=== PATIENT | female | born 1935 | race Caucasian/White ===

== ENCOUNTER 2016-11-04 15:01 | Emergency (ER) | payer MEDICARE ==
[~2016-11-04] VITALS: Ht 170.2 cm; Wt 66.8 kg
[~2016-11-04 15:01] MED LIST: ANAS1 PO; ATOR20TA42 PO; FENO50TA PO; HYDR-2768 PO; LEVO100T60 PO; POTA-243 PO; REST15CA PO; TOPR100T15 PO
[2016-11-04 15:04] VITALS: BP 176/97; PULSE 55; RESP 18; TEMP 98.1; O2SAT 97
[2016-11-04] MEDS ORDERED: LIDOCAINE 1%/EPINEPHrine 1:100,000 SOLN 20 ML VIAL INFIL ONE (15:30)
[2016-11-04] MEDS ORDERED: TETANUS/DIPHTHERIA TOXOID ADULT 0.5 ML VIAL IM ONE (15:30)
--- NOTE | 2016-11-04 15:38 | PD ---
HPI Chief Complaint: Laceration/Skin Injury Time Seen by Provider: 15:35 Travel History International Travel<30 days: No Contact w/Intl Traveler<30days: No Traveled to known affect area: No History of Present Illness HPI 81-year-old female that presents to the ED for evaluation of trip and fall today. Per patient she was in her driveway and she accidentally tripped and fell. She usually uses a cane to go about. Per patient she fell into a curb and hit her right face. Patient has superficial laceration to it. Per patient she was able to get up with assistance. She lives by herself. She denies any blood thinners. She denies losing consciousness. No other injuries reported. Denies any pain anywhere else. No chest pain or shortness of breath. No fevers chills or sweats. No numbness, tilling, weakness. Per patient the pain is all on the right side of the face. She is able to open her eye and see from her eye. She denies any blurry vision or double vision. Per patient the pain is 5 out of 10 on the right side of the face. She does have allergies to medication. PFSH Past Medical History Arthritis: Yes Asthma: No Autoimmune Disease: No Anxiety: Yes Heart Rhythm Problems: No Cancer: Yes (LEFT KIDNEY, RIGHT BREAST) Cardiovascular Problems: Yes High Cholesterol: Yes Chest Pain: No Congestive Heart Failure: No COPD: No Cerebrovascular Accident: No Diabetes: No GERD: No Glaucoma: No Genitourinary: No Headaches: No Hepatitis: No Hiatal Hernia: No Hypertension: Yes Kidney Stones: No Musculoskeletal: Yes Neurologic: No Reproductive: No Respiratory: No Migraines: No Myocardial Infarction: No Renal Failure: No (but left kidney removed from [place]) Seizures: No Sleep Apnea: No Thyroid Disease: Yes Ulcer: No Tetanus Vaccination: < 5 Years Menopausal: Yes Past Surgical History Abdominal Surgery: No Appendectomy: No Cardiac Surgery: No Cholecystectomy: No Ear Surgery: No Endocrine Surgery: No Eye Surgery: No Genitourinary Surgery: Yes (LEFT NEPHRECTOMY) Gynecologic Surgery: No Oral Surgery: No Pacemaker: No Thoracic Surgery: No Other Surgery: Yes (RIGHT BREAST FOR CANCER ON 09/11/09) Social History Alcohol Use: Yes Tobacco Use: No Substance Use: No Allergies-Medications (Allergen,Severity, Reaction): Coded Allergies: Adhesives (Unverified Allergy, Severe, SKIN BURN, 11/04/16) Demerol (Verified Allergy, Severe, severe "family history" recommended not to take, 11/04/16) Latex (Unverified Allergy, Severe, SKIN BURN, 11/04/16) Sulfa (Verified Allergy, Severe, rash, 11/04/16) Reported Meds & Prescriptions Reported Meds & Active Scripts Active Tramadol (Tramadol HCl) 50 Mg Tab 50 Mg PO Q6H PRN Amoxicillin 875 Mg Tab 875 Mg PO BID 10 Days Reported Arimidex (Anastrozole) 1 Mg Tab 1 Mg PO DAILY Restoril (Temazepam) 15 Mg Cap 15 Mg PO HSPRN Tricor (Fenofibrate) 145 Mg Tab 145 Mg PO DAILY Lipitor (Atorvastatin Calcium) 20 Mg Tab 20 Mg PO DAILY Levoxyl (Levothyroxine Sodium) 100 Mcg Tab 100 Mcg PO DAILY Toprol XL (Metoprolol Succinate) 100 Mg Tab 100 Mg PO BID K-Dur (Potassium Chloride) 10 Meq Tabcr 10 Meq PO DAILY Hctz (Hydrochlorothiazide) 25 Mg Tab 25 Mg PO DAILY Review of Systems Except as stated in HPI: all other systems reviewed are Neg Physical Exam Narrative GENERAL: SKIN: Warm and dry. Patient has superficial laceration less than half a centimeter on the right eyebrow. Slightly noted. Less than 2 mm between borders. Well approximated. Patient does have a hematoma bruising with tenderness to palpation on the zygomatic bone of the right face. Patient does have bruises and hematoma in this area. HEAD: Atraumatic. Normocephalic. EYES: Pupils equal and round 4 mm reactive to light and accommodation. No scleral icterus. No injection or drainage. ENT: No nasal bleeding or discharge. Mucous membranes pink and moist. Tongue is midline. No uvula deviation. NECK: Trachea midline. No JVD. CARDIOVASCULAR: Regular rate and rhythm. No murmurs, S3, S4. RESPIRATORY: No accessory muscle use. Clear to auscultation. Breath sounds equal bilaterally. GASTROINTESTINAL: Abdomen soft, non-tender, nondistended. Hepatic and splenic margins not palpable. MUSCULOSKELETAL: Extremities without clubbing, cyanosis, or edema. No obvious deformities. Full range of motion of the upper and lower extremities bilaterally. Pupils pulses bilaterally. No lumbar, thoracic, cervical spine tenderness to palpation. NEUROLOGICAL: Awake and alert. No obvious cranial nerve deficits. Motor grossly within normal limits. Five out of 5 muscle strength in the arms and legs. Normal speech. PSYCHIATRIC: Appropriate mood and affect; insight and judgment normal. Data Data Last Documented VS Vital Signs Date Time Temp Pulse Resp B/P Pulse Ox O2 Delivery O2 Flow Rate FiO2 11/04/16 15:04 98.1 55 18 176/[address] Brain W/O Iv Contrast(Rout) (11/04/16 15:29) Ct Cerv Spine W/O Contrast (11/04/16 15:29) Ct Facial Bones W/O Iv Cont (11/04/16 15:29) Wound Care (11/04/16 15:29) Tetanus/Diphtheria Tox Adult (Tetanus/Di (11/04/16 15:30) Lidocai-Epi 1%-1:100,000 Inj (Xylocaine- (11/04/16 15:30) MDM Medical Decision Making Medical Screen Exam Complete: Yes Emergency Medical Condition: Yes Medical Record Reviewed: Yes Interpretation(s) Last Impressions Maxillofacial CT 11/04/161528 Signed Impressions: Service Date/Time: Friday, November 04, 2016 15:48 - CONCLUSION: 1. Right-sided orbital floor fracture with displaced bone fragments inferiorly and some herniation of orbital fat inferiorly. No CT findings of entrapment. Medial orbital wall fracture also present. Hemorrhage present in right maxillary sinus. Esau Carvalho MD Head CT 11/04/161528 Signed Impressions: Service Date/Time: Friday, November 04, 2016 15:48 - CONCLUSION: Orbital fracture, and cranial contents are unremarkable. Facial bone CT is pending. Mg Mauricio MD FACR Cervical Spine CT 11/04/161528 Signed Impressions: Service Date/Time: Friday, November 04, 2016 15:48 - CONCLUSION: 1. Moderate to severe degenerative change and facet arthropathy. No acute bony abnormalities. Esau Carvalho MD Differential Diagnosis Fracture versus head injury versus contusion versus hematoma versus laceration Narrative Course 81-year-old female that presents to the ED for evaluation of head injury. Patient was properly examined and was found to have signs and symptoms consistent with appears to be head injury. Imaging was ordered. Patient prefers to proceed. After explained procedure to the patient and she agreed to it laceration was repaired as stated in procedure note. Patient was told to get sutures removed in [address] did show right orbital fracture. Case was discussed in my attending who recommends consult. Consult was made with Dr ayala for craniofacial who recommends follow-up in his office. Put her on head injury precautions as well as no coughing and no sneezing and blowing nose. Patient was told this. Patient was given prescription for amoxicillin tramadol for pain. Told to apply ice or warm compresses. See ED worsening symptoms. Procedures Procedure Narrative LACERATION LOCATION: right eyebrow LENGTH: 0.5 cm NUMBER OF STITCHES/CRIS: 2 sutures REPAIR: The area of the laceration was prepped with Betadine and sterilely draped. The laceration was infiltrated with 1% Xylocaine. The wound was copiously irrigated and explored without evidence of foreign body, tendon injury or neurovascular injury. The wound was closed using 5-0 Prolene. This was a 1 layer repair. A sterile dressing was applied. The patient was advised to keep the dressing clean and dry. Patient tolerated the procedure well. Diagnosis Primary Impression: Right orbital fracture Qualified Code: S02.81XA - Right orbital fracture, closed, initial encounter Referrals: Maxi Ayala DDS Patient Instructions: General Instructions Additional Instructions: Take medications as prescribed. Follow-up with PCP and craniofacial doctor. See ED for any worsening symptoms. Do not drink or drive while taking pain medication. Apply ice or heat as needed for pain No sneezing. No coughing. Do not blow your nose. Get sutures removed in 7 days. Med/Other Pt SpecificInfo: Prescription(s) given Scripts Tramadol 50 Mg Tab50 Mg PO Q6H PRN (PAIN) #12 TAB Ref 0 Prov:Neil Levy MD 11/04/16 Amoxicillin 875 Mg Uwh368 Mg PO BID 10 Days Prov:Neil Levy MD 11/04/16 Disposition: 01 DISCHARGE HOME Condition: Stable Nabil Matt Nov 04, 2016 15:38
--- NOTE | 2016-11-04 16:06 | RADRPT ---
EXAM DATE/TIME: 11/04/2016 15:48 [facility] COMPARISON: No previous studies available for comparison. INDICATIONS : Trauma; fall, bruising to right eye. RADIATION DOSE: 34.12 CTDIvol (mGy) MEDICAL HISTORY : Cardiovascular disease. Hypertension. Carcinoma, breast.Renal carcinoma, renal failure. SURGICAL HISTORY : None. ENCOUNTER: Initial ACUITY: 1 day PAIN SCALE: 4/10 LOCATION: Bilateral cranial TECHNIQUE: Multiple contiguous axial images were obtained of the head. Using automated exposure control and adj ustment of the mA and/or kV according to patient size, radiation dose was kept as low as reasonably a chievable to obtain optimal diagnostic quality images. FINDINGS: Intracranial contents are unremarkable. There is no parenchymal hemorrhage, acute infarction or mass lesion. Ventricle size is appropriate. The posterior fossa is unremarkable. Orbital fractures seen on the right. Facial bone CT is pending. CONCLUSION: Orbital fracture, and cranial contents are unremarkable. Facial bone CT is pending. Mg Mauricio MD FACR on November 04, 2016 at 16:03 Board Certified Radiologist. This report was verified electronically.
--- NOTE | 2016-11-04 16:38 | RADRPT ---
EXAM DATE/TIME: 11/04/2016 15:48 [facility] COMPARISON: No previous studies available for comparison. INDICATIONS : Trauma; fall, facial trauma. RADIATION DOSE: 19.95 CTDIvol (mGy) MEDICAL HISTORY : Cardiovascular disease. Hypertension. Carcinoma, breast.Renal carcinoma, renal failure. SURGICAL HISTORY : None. ENCOUNTER: Initial ACUITY: 1 day PAIN SCALE: 6/10 LOCATION: neck TECHNIQUE: Volumetric scanning of the cervical spine was performed. Multiplanar reconstructions in the sagittal, coronal and oblique axial planes were performed. Using automated exposure control and adjustment o f the mA and/or kV according to patient size, radiation dose was kept as low as reasonably achievable to obtain optimal diagnostic quality images. FINDINGS: No acute fracture or spondylolisthesis. There is moderate to severe degenerative disc disease through out the cervical spine. There is some mild AP canal stenosis at C5-6. There is hypertrophic change ar ound the dens and anterior arch of C1. CONCLUSION: 1. Moderate to severe degenerative change and facet arthropathy. No acute bony abnormalities. Esau Carvalho MD on November 04, 2016 at 16:12 Board Certified Radiologist. This report was verified electronically.
--- NOTE | 2016-11-04 16:45 | RADRPT ---
EXAM DATE/TIME: 11/04/2016 15:48 [facility] COMPARISON: No previous studies available for comparison. INDICATIONS : Trauma; fall, right periorbital bruising. RADIATION DOSE: 58.16 CTDIvol (mGy) MEDICAL HISTORY : Cardiovascular disease. Hypertension. Carcinoma, breast.Renal carcinoma, renal failure. SURGICAL HISTORY : None. ENCOUNTER: Initial ACUITY: 1 day PAIN SCORE: 7/10 LOCATION: Right facial TECHNIQUE: Volumetric scanning of the facial bones was performed. Using automated exposure control and adjustme nt of the mA and/or kV according to patient size, radiation dose was kept as low as reasonably achiev able to obtain optimal diagnostic quality images. FINDINGS: There is an orbital blowout fracture of the inferior orbital floor with some herniation of orbital fa t inferiorly. There is also extensive intraorbital air extending into the retrobulbar space. There is hemorrhage in the right maxillary sinus. There is also a fracture of the medial orbital wall or lami na papyracea. No other facial bone fractures identified. Globes are intact. There is periorbital soft tissue swelling. CONCLUSION: 1. Right-sided orbital floor fracture with displaced bone fragments inferiorly and some herniation of orbital fat inferiorly. No CT findings of entrapment. Medial orbital wall fracture also present. Hem orrhage present in right maxillary sinus. Esau Carvalho MD on November 04, 2016 at 16:37 Board Certified Radiologist. This report was verified electronically.
[2016-11-04] MEDS ORDERED: AMOX875T PO (16:55)
[2016-11-04] MEDS ORDERED: TRAM50TA PO (16:55)
== END 2016-11-04 21:32 | disposition home or self-care (01) ==
LOC: NEPE 15:01
DX: S00.11XA Contusion of right eyelid and periocular area, initial encounter (principal); F41.9 Anxiety disorder, unspecified; E78.00 Pure hypercholesterolemia, unspecified; F10.10 Alcohol abuse, uncomplicated; I10 Essential (primary) hypertension; W01.0XXA Fall on same level from slipping, tripping and stumbling without subsequent striking against object, initial encounter; Y93.89 Activity, other specified; Y99.9 Unspecified external cause status
CPT/HCPCS: 12011; 70450; 70486; 72125